=== PATIENT | female | born 1995 | race Caucasian/White ===

== ENCOUNTER 2025-07-24 20:51 | Emergency (ER) | payer OTHER ==
[2025-07-24] MEDS: Take Home: Amoxicillin/Clavulanate K 875-125 MG Tab, 2 Tab Pack PO ONE (21:14)
== END 2025-07-24 21:17 | disposition home or self-care (01) ==
LOC: VM.ED 20:51 → SUPCPDRO 20:51 → VM.ED 21:17
DX: H60.11 Cellulitis of right external ear (principal); Z91.013 Allergy to seafood; Z79.899 Other long term (current) drug therapy; Z86.16 Personal history of COVID-19
CPT/HCPCS: 99282; 99283; A9270-GY